=== PATIENT | male | born 1955 | race Asian ===

== ENCOUNTER → 2016-08-25 | Outpatient (CLI) | payer BC ==
[~2016-08-25] MED LIST: ASCO500T3 PO; ASPI81TA28 PO; CALC-51 PO; FEXO1TAB46 PO; LISI-461 PO; LPR25 PO; LPT40 PO; NTRGSL/4 UT; PLV75 PO; TRVHP PO
== END | disposition home or self-care (01) ==
LOC: C.LABSPEC 10:53
PROVIDERS: ATTEND Nurse Practitioner Adult Health
DX: J06.9 Acute upper respiratory infection, unspecified (principal)

== ENCOUNTER → 2017-05-28 | Outpatient (CLI) | payer BC ==
--- NOTE | 2017-05-28 10:23 | DIAGNOSTIC IMAGING REPORT ---
ABDOMEN COMPLETE (US) CLINICAL HISTORY: HEPATITIS B VIRUS INFECTION COMPARISON STUDY: Abdominal ultrasound April 23, 2016. FINDINGS: The liver is sonographically normal. No hepatic lesions are identified. The main portal vein is patent. There is no ascites. The gallbladder is partially obscured but visualized portions are normal. The pancreas is obscured by bowel gas. There is no biliary ductal dilatation. The size of the spleen is normal. The right kidney measures 10.7 cm and the left measures 10.9 cm. The caliber of the abdominal aorta is normal. IMPRESSION: 1. Normal sonographic appearance of the liver. No hepatic lesions identified by sonography however study mildly compromised by suboptimal penetration. 2. No gallstones or biliary ductal dilatation. 3. Largely obscured pancreas. Electronically signed by: Dexter Smith M.D. 05/28/2017 10:21 AM Dictated Date/Time: 05/28/2017 10:19 AM
[2017-05-28 13:30] LABS: BASO % 0.6 %; BASO ABS # 0.03 K/uL (0-0.2); EOS ABS # 0.14 K/uL (0-0.5); HEMATOCRIT 45.6 % (42-52); HEMOGLOBIN 15.7 g/dL (14.0-18.0); IG# 0.01 K/uL (0.00-0.02); LYMPH ABS # 1.11 K/uL (1.2-3.4); MEAN CELL VOLUME 92.1 fL (80-100); MEAN CORPUSCULAR HEMOGLOBIN 31.7 pg (25-34); MEAN CORPUSCULAR HGB CONC 34.4 g/dl (32-36); MEAN PLATELET VOLUME 10.3 fL (7.4-10.4); MONO % 9.7 %; MONO ABS # 0.45 K/uL (0.11-0.59); NEUT % 62.5 %; NEUT ABS # 2.89 K/uL (1.4-6.5); PLATELET COUNT 157 K/uL (130-400); RED CELL DISTRIBUTION WIDTH CV 12.9 % (11.5-14.5); RED CELL DISTRIBUTION WIDTH SD 43.2 fL (36.4-46.3); WHITE BLOOD COUNT 4.63 K/uL (4.8-10.8)
[2017-05-28 13:54] LABS: ALBUMIN 3.5 gm/dl (3.4-5.0); ALT/SGPT 51 U/L (12-78); BLOOD UREA NITROGEN 18 mg/dl (7-18); CALCIUM 8.5 mg/dl (8.5-10.1); CARBON DIOXIDE 26 mmol/L (21-32); CREATININE 1.02 mg/dl (0.60-1.40); GLUCOSE 87 mg/dl (70-99); POTASSIUM 3.7 mmol/L (3.5-5.1); SODIUM 139 mmol/L (136-145)
[2017-05-28 13:57] LABS: ALKALINE PHOSPHATASE 64 U/L (45-117); AST/SGOT 33 U/L (15-37); TOTAL PROTEIN 6.4 gm/dl (6.4-8.2)
[2017-06-01 09:21] LABS: HEP B QUANT <20 IU/mL (<20); HEPATITIS BE ANTIGEN TC 555 Reactive
== END | disposition home or self-care (01) ==
LOC: C.ULTRBC 09:17
PROVIDERS: ATTEND Internal Medicine
DX: B18.1 Chronic viral hepatitis B without delta-agent (principal)

== ENCOUNTER → 2017-06-18 | Outpatient (CLI) | payer OTHER ==
[2017-06-18 09:37] LABS: BASO ABS # 0.03 K/uL (0-0.2); EOS % 3.8 %; EOS ABS # 0.12 K/uL (0-0.5); HEMATOCRIT 49.4 % (42-52); HEMOGLOBIN 17.6 g/dL (14.0-18.0); IG# 0.01 K/uL (0.00-0.02); LYMPH % 20.2 %; LYMPH ABS # 0.63 K/uL (1.2-3.4); MEAN CELL VOLUME 92.3 fL (80-100); MEAN CORPUSCULAR HEMOGLOBIN 32.9 pg (25-34); MEAN CORPUSCULAR HGB CONC 35.6 g/dl (32-36); MEAN PLATELET VOLUME 10.1 fL (7.4-10.4); MONO % 18.3 %; MONO ABS # 0.57 K/uL (0.11-0.59); NEUT % 56.4 %; NEUT ABS # 1.76 K/uL (1.4-6.5); PLATELET COUNT 116 K/uL (130-400); RED CELL DISTRIBUTION WIDTH CV 12.9 % (11.5-14.5); RED CELL DISTRIBUTION WIDTH SD 43.6 fL (36.4-46.3); WHITE BLOOD COUNT 3.12 K/uL (4.8-10.8)
[2017-06-18 09:50] LABS: BLOOD UREA NITROGEN 17 mg/dl (7-18); CALCIUM 8.7 mg/dl (8.5-10.1); CARBON DIOXIDE 28 mmol/L (21-32); CHOLESTEROL 103 mg/dl (0-200); GLUCOSE 90 mg/dl (70-99); POTASSIUM 4.3 mmol/L (3.5-5.1); SODIUM 135 mmol/L (136-145)
[2017-06-18 09:54] LABS: LDL CHOLESTEROL CALCULATED 58 mg/dl
== END | disposition home or self-care (01) ==
LOC: C.LAB1850 07:56
PROVIDERS: ATTEND Internal Medicine Cardiovascular Disease
DX: E78.5 Hyperlipidemia, unspecified (principal); I25.10 Atherosclerotic heart disease of native coronary artery without angina pectoris; R07.9 Chest pain, unspecified

== ENCOUNTER → 2017-10-19 | Outpatient (CLI) | payer OTHER ==
[2017-10-19 18:00] LABS: BLOOD UREA NITROGEN 19 mg/dl (7-18); CALCIUM 8.6 mg/dl (8.5-10.1); CARBON DIOXIDE 30 mmol/L (21-32); GLUCOSE 89 mg/dl (70-99); POTASSIUM 3.7 mmol/L (3.5-5.1); SODIUM 136 mmol/L (136-145)
== END | disposition home or self-care (01) ==
LOC: C.LAB1850 16:33
PROVIDERS: ATTEND Internal Medicine Cardiovascular Disease
DX: I10 Essential (primary) hypertension (principal)